=== PATIENT | female | born 1970 ===

== ENCOUNTER → 2018-10-28 14:51 | Outpatient (CLI) | payer OTHER, SELFPAY ==
[2018-10-28 15:13] LABS: Add Manual Diff / Slide Review NO; Basophils Absolute Auto 0 /uL (0-100); Basophils Percent Auto 0.6 % (0-2); Eosinophils Absolute Auto 100 /uL (0-450); Eosinophils Percent Auto 1.9 % (2-4); Hematocrit 43.1 % (36-46); Hemoglobin 14.6 g/dL (12.0-16.0); Lymphocytes Absolute Auto 1800 /uL (1100-4500); Lymphocytes Percent Auto 28.8 % (25-40); Mean Corpuscular HGB Conc 33.8 % (30-36); Mean Corpuscular Hemoglobin 30.2 PG (26-34); Mean Corpuscular Volume 89.4 fL (80-100); Monocytes Absolute Auto 500 /uL (0-900); Neutrophils Absolute Auto 4000 /uL (1500-7000); Neutrophils Percent Auto 61.7 % (50-75); Platelet Count 209 X10^3/uL (150-400); Red Blood Cell Count 4.82 X10^6/uL (4.0-5.2); Red Cell Distribution Width 13.8 % (11.6-14.8); White Blood Cell Count 6.4 X10^3/uL (4.5-11.0)
[2018-10-28 15:56] LABS: Alanine Aminotransferase 40 IU/L (9-52); Albumin 4.4 g/dL (3.5-5.0); Albumin Globulin Ratio 1.6 (1.0-2.8); Alkaline Phosphatase 66 U/L (38-126); Aspartate Aminotransferase 33 IU/L (14-36); BUN Creatinine Ratio 18.8 (6-22); Bilirubin Total 0.3 mg/dL (0.2-1.3); Blood Urea Nitrogen 15 mg/dL (7-17); Calcium 9.8 mg/dL (8.4-10.2); Carbon Dioxide 25 mmol/L (22-32); Chloride 104 mmol/L (98-107); Estimated Glomerular Filt Rate > 60.0 mL/min (>60); Globulin 2.8 g/dL (1.7-4.1); Glucose 95 mg/dL (70-100); HEMOLYSIS < 15 (0-50); Potassium 4.4 mmol/L (3.4-5.1); Sodium 139 mmol/L (137-145); Total Protein 7.2 g/dL (6.3-8.2)
[2018-10-28 16:09] LABS: Free T4, Direct Thyroxine 0.95 ng/dL (0.78-2.19)
[2018-10-28 16:23] LABS: Thyroid Stimulating Hormone 1.54 uIU/mL (0.47-4.68)
== END ==
PROVIDERS: Visit Provider Psychiatry & Neurology Psychiatry
DX: F32.2 Major depressive disorder, single episode, severe without psychotic features (principal)
CPT/HCPCS: 36415; 80053; 84439; 84443; 85025

== ENCOUNTER → 2021-10-09 13:55 | Outpatient (CLI) | payer OTHER, SELFPAY ==
--- NOTE | 2021-10-09 | DI.US.S_ITS ---
LIMITED ULTRASOUND OF RIGHT BREAST: 10/09/2021 CLINICAL: Late 6 month follow-up of cysts in right breast. No prior exams were available for comparison. Color flow and real-time ultrasound of the right breast upper inner quadrant were performed. Wiseman scale images of the real-time examination were reviewed. There is a benign cluster of micro cysts in the right breast at 1 o'clock anterior depth. These abnormalities are not significantly changed. IMPRESSION: BENIGN There is no sonographic evidence of malignancy. The cluster of micro cysts in the right breast is benign. A 1 year screening mammogram is recommended. This exam was interpreted at Station ID: [id number]. Electronically Signed By: Juarez Hawkins M.D., jr/sofi:10/09/2021 15:14:51 letter sent: Normal Exam Ultrasound BI-RADS: 2 Benign
--- NOTE | 2021-10-09 | DI.MG.S_ITS ---
BILATERAL DIGITAL DIAGNOSTIC MAMMOGRAM 3D/2D SHORT-TERM FOLLOW-UP: 10/09/2021 CLINICAL: Short term follow up of the right breast, due for bilateral imaging. Left breast Nipple discharge. Comparison is made to exams dated: 12/05/2019 mammogram, 04/01/2019 mammogram, 09/03/2018 mammogram, and 08/21/2018 mammogram - outside location. There are scattered fibroglandular elements in both breasts. There are multiple oval focal asymmetries with a circumscribed margin in the right breast superior medial quadrant anterior depth. These correlate with ultrasound findings. No other significant masses, calcifications, or other findings are seen in either breast. IMPRESSION: INCOMPLETE: NEEDS ADDITIONAL IMAGING EVALUATION The multiple oval focal asymmetries in the right breast most likely are a cyst and are indeterminate. An ultrasound is recommended. Based on the Tyrer Cuzick model (a risk assessment model) the patient's lifetime risk is 7.0% and her 10 year risk is 1.7%. According to the ACR, ACS, and NCCN guidelines, an annual breast MRI exam along with mammogram is recommended if the patient's lifetime risk is 20% or greater. This exam was interpreted at Station ID: [id number]. NOTE: For mammograms, a report in lay terms will be sent to the patient. Approximately 15% of breast malignancies will not be visualized mammographically. In the management of a palpable breast mass, a negative mammogram must not discourage biopsy of a clinically suspicious lesion. Electronically Signed By: Juarez Hakwins M.D., jr/sofi:10/09/2021 14:36:58 letter sent: Normal Exam ACR BI-RADS Category 0: Incomplete [id number]
== END ==
PROVIDERS: PCP Physician Assistant; Referring Provider Physician Assistant; Visit Provider Physician Assistant
DX: R92.8 Other abnormal and inconclusive findings on diagnostic imaging of breast (principal); N60.01 Solitary cyst of right breast
CPT/HCPCS: 76642; 77066; G0279